=== PATIENT | male | born 1955 | race Caucasian/White ===

== ENCOUNTER → 2023-12-14 09:58 | Outpatient (REF) | payer MEDICARE, OTHER, SELFPAY | LOC: MRI 3T 09:58 | PROVIDERS: ATTENDING PHYSICIAN Orthopaedic Surgery | DX: M25.512 Pain in left shoulder (principal) | CPT/HCPCS: 73221 ==

== ENCOUNTER → 2024-12-28 08:18 | Outpatient (REF) | payer MEDICARE, BC, SELFPAY | LOC: HWRAD 08:18 | PROVIDERS: ATTENDING PHYSICIAN Family Medicine | DX: Z87.891 Personal history of nicotine dependence (principal) | CPT/HCPCS: 71271 ==

== ENCOUNTER → 2025-01-12 11:30 | Outpatient (REF) | payer MEDICARE, BC, SELFPAY | LOC: HWRAD 11:30 | PROVIDERS: ATTENDING PHYSICIAN Family Medicine | DX: I70.90 Unspecified atherosclerosis (principal) | CPT/HCPCS: 75571 ==

== ENCOUNTER → 2025-01-30 09:46 | Outpatient (REF) | payer MEDICARE, BC, SELFPAY | LOC: RCS 09:46 | PROVIDERS: ATTENDING PHYSICIAN Family Medicine | DX: R07.9 Chest pain, unspecified (principal); J43.2 Centrilobular emphysema | CPT/HCPCS: 93017 ==

== ENCOUNTER → 2025-03-14 14:33 | Outpatient (REF) | payer MEDICARE, BC, SELFPAY | LOC: DHSLP 14:33 | PROVIDERS: ATTENDING PHYSICIAN Internal Medicine; FAMILY PHYSICIAN Family Medicine | DX: G47.30 Sleep apnea, unspecified (principal); G47.00 Insomnia, unspecified; R06.83 Snoring | CPT/HCPCS: 95800 ==

== ENCOUNTER → 2025-04-26 10:13 | Outpatient (REF) | payer MEDICARE, BC, SELFPAY ==
[2025-04-26 12:40] LABS: Blood Urea Nitrogen 35 mg/dl (9-20); Calcium 9.8 mg/dl (8.4-10.2); Carbon Dioxide 31 mmol/L (22-30); Chloride 105 mmol/L (98-107); Glucose 59 mg/dl (70-99); Potassium 4.6 mmol/L (3.5-5.1); Sodium 141 mmol/L (135-145); eGFR > 60.00
== END ==
LOC: REG 10:13
PROVIDERS: ATTENDING PHYSICIAN Family Medicine
DX: Z01.812 Encounter for preprocedural laboratory examination (principal)
CPT/HCPCS: 36415; 80048

== ENCOUNTER → 2025-04-27 07:31 | Outpatient (REF) | payer MEDICARE, BC, SELFPAY | LOC: RAD 07:31 | PROVIDERS: ATTENDING PHYSICIAN Family Medicine | DX: R91.1 Solitary pulmonary nodule (principal) | CPT/HCPCS: 71260; Q9967 ==

== ENCOUNTER → 2025-05-31 06:35 | Outpatient (REF) | payer MEDICARE, BC, SELFPAY | LOC: HWRAD 06:35 | PROVIDERS: ATTENDING PHYSICIAN Family Medicine | DX: M79.604 Pain in right leg (principal) | CPT/HCPCS: 73564; 93971 ==

== ENCOUNTER 2025-07-26 06:16 | Day surgery (SDC) | payer MEDICARE, BC, SELFPAY | END 2025-07-26 10:18 | disposition home or self-care (01) | LOC: GI 06:16 | PROVIDERS: ATTENDING PHYSICIAN Surgery | DX: Z12.11 Encounter for screening for malignant neoplasm of colon (principal); K57.30 Diverticulosis of large intestine without perforation or abscess without bleeding | CPT/HCPCS: G0105 ==

== ENCOUNTER → 2025-08-01 16:24 | Outpatient (REF) | payer MEDICARE, BC, SELFPAY | LOC: PAVMRI 16:24 | PROVIDERS: ATTENDING PHYSICIAN Orthopaedic Surgery; FAMILY PHYSICIAN Family Medicine | DX: M79.661 Pain in right lower leg (principal); M71.21 Synovial cyst of popliteal space [Baker], right knee; M17.11 Unilateral primary osteoarthritis, right knee | CPT/HCPCS: 73718; 73721 ==

== ENCOUNTER → 2025-09-08 08:21 | Outpatient (REF) | payer MEDICARE, BC, SELFPAY | LOC: RAD 08:21 | PROVIDERS: ATTENDING PHYSICIAN Podiatrist; FAMILY PHYSICIAN Orthopaedic Surgery | DX: M77.51 Other enthesopathy of right foot and ankle (principal); M79.671 Pain in right foot; Z01.818 Encounter for other preprocedural examination | CPT/HCPCS: 73630; 93005 ==

== ENCOUNTER → 2025-09-25 13:14 | Outpatient (REF) | payer MEDICARE, BC, SELFPAY | LOC: HWRAD 13:14 | PROVIDERS: ATTENDING PHYSICIAN Nurse Practitioner Family | DX: J34.89 Other specified disorders of nose and nasal sinuses (principal) | CPT/HCPCS: 70486 ==